=== PATIENT | female | born 1985 | race Two or more races ===

== ENCOUNTER 2018-05-27 06:02 | Day surgery (SDC) | payer BC ==
[2018-05-27] VITALS (15 sets, daily range): BP systolic 100–135; BP diastolic 57–80
[~2018-05-27] VITALS: Ht 167.6 cm; Wt 55.3 kg
[~2018-05-27 06:02] MED LIST: TAYTULLA PO; cefOXitin Sod 2 GM in D5W 55 ML IVPB ONE
[2018-05-27] MEDS ORDERED: Bacitracin Oint 15gm Tube TOPIC ONE (06:34)
[2018-05-27] MEDS ORDERED: Lidocaine 1% MPF 10mg/ml 5ml ONE (06:34)
[2018-05-27] MEDS ORDERED: Bupivacaine 0.5% Inj 30 ml vial INJ ONE (06:34)
[2018-05-27] MEDS ORDERED: Ropivacaine 5mg/ml Vial 30ml INJ ONE (07:09)
[2018-05-27] MEDS ORDERED: Zemuron 50mg/5ml Inj IV ONE (07:19)
[2018-05-27] MEDS ORDERED: Propofol 200mg/20ml IV ONE (07:19)
[2018-05-27] MEDS ORDERED: Succinylcholine 20mg/ml 10ml vial ONE (07:20)
--- NOTE | 2018-05-27 07:27 | Anethesia Preoperative Eval ---
Anesthesia Pre-op PMH/ROS General Date of Evaluation: May 27, 2018 Time of Evaluation: 07:20 Anesthesiologist: Malaika Marquez CRNA ASA Score: ASA 1 Mallampati Score Class I : Soft palate, uvula, fauces, pillars visible Class II: Soft palate, uvula, fauces visible Class III: Soft palate, base of uvula visible Class IV: Only hard plate visible Mallampati Classification: Class I Surgeon: Jami Diagnosis: Endometriosis Anesthesia History: none Social History: smoking Family History: no anesthesia problems Allergies: Coded Allergies: No Known Allergies (Unverified , 05/27/18) Medications: see eMAR Patient NPO?: Yes NPO Date: May 27, 2018 NPO Time: 00:00 Past Medical History Cardiovascular: Denies: HTN, CAD, TN, valve dz, arrhythmia, other Pulmonary: Denies: asthma, COPD, RODRI, other Gastrointestinal/Genitourinary: Reports: other - endometriosis; Denies: GERD, CRI, ESRD HEENT: Reports: other - past nasal fracture; Denies: cataract (L), cataract (R), glaucoma, [place] (L), [place] (R) Hematology/Immune: Denies: anemia, DVT, bleeding disorder, other Musculoskeletal/Integumentary: Denies: OA, RA, DJD, DDD, edema, other PMH Narrative: As above PSxH Narrative: nasal fracture repair Anesthesia Pre-op Phys. Exam Physician Exam Last Vital Signs Date Time Temp Pulse Resp B/P (MAP) Pulse Ox O2 Delivery O2 Flow Rate FiO2 05/27/18 07:03 98.6 61 18 113/80 100 Room Air 98.6 Constitutional: NAD Neurologic: CN 2-12 intact Cardiovascular: RRR Respiratory: CTA Gastrointestinal: S/NT/ND Airway Exam Mallampati Score: Class I MO: full Neck: no limitations TMD: > 3 FB ROM: full Teeth: intact Dentures: no upper, no lower Anesthesia Pre-op A/P Labs in chart, reviewed Urine Test Test 05/27/18 06:20 Urine HCG, Qualitative Negative (NEGATIVE) Risk Assessment & Plan Assessment: Heatlhy ASA I ok to proceed Plan: GETA Status Change Before Surgery: No Pre-Antibiotics Drug: Malaika Perez CRNA May 27, 2018 07:27
--- NOTE | 2018-05-27 07:49 | Pre-Procedure Note/Attestation ---
Pre-Procedure Note/Attestation Complete Prior to Procedure Planned Procedure: not applicable Procedure Narrative: CO2 laser pelviscopy, possible bilateral ovarian cystectomies, ablation of endometriosis, hysteroscopy dilation and curettage Indications for Procedure Pre-Operative Diagnosis: left sided hemorhagic cyst, persistent pain, dysmenorhea Attestation I attest that I discussed the nature of the procedure; its benefits; risks and complications; and alternatives (and the risks and benefits of such alternatives ), prior to the procedure, with the patient (or the patient's legal financial representative). I attest that, if there was a reasonable possibility of needing a blood transfusion, the patient (or the patient's legal financial representative) was given the [place] [employer] standardized written summary, pursuant to the Behzad Severo Blood Safety Act ([place] Health and Safety Code # 1645, as amended). I attest that I re-evaluated the patient just prior to the surgery and that there has been no change in the patient's H&P, except as documented below: Ada Farrell MD May 27, 2018 07:49
[2018-05-27] MEDS ORDERED: fentaNYL 100 mcg/2 mL IV ONE (08:00)
[2018-05-27] MEDS: ProvayBlue 5mg/ml 10ml amp INJ ONE ×2 (08:00→09:45)
[2018-05-27] MEDS ORDERED: Metoclopramide 10mg/2ml Inj ONE (08:00)
[2018-05-27] MEDS ORDERED: Glycopyrrolate 0.2mg/ml 1ml Vial ONE (08:00)
[2018-05-27] MEDS ORDERED: LR 1000ml ONE (08:00)
[2018-05-27] MEDS ORDERED: NS Irrig 1000ml ONE (08:00)
[2018-05-27] MEDS ORDERED: Dexamethasone 4mg/ml vial ONE (08:00)
[2018-05-27] MEDS ORDERED: Sterile Water Irrig 1000ml IRRIG ONE (08:00)
[2018-05-27] MEDS ORDERED: Midazolam 2mg/2ml Inj ONE (08:00)
[2018-05-27] MEDS ORDERED: Neostigmine 1mg/ml 10ml Inj ONE (09:19)
[2018-05-27] MEDS ORDERED: DiphenhydrAMINE 50mg/ml Inj IVP PRN ×2 (10:00→14:01)
--- NOTE | 2018-05-27 10:17 | Brief Operative Note ---
Immediate Post Operative Note Operative Note Pre-op Diagnosis: left sided hemorhagic cyst, persistent pain, dysmenorhea Procedure: CO@2 laser pelviscopy, dilation, hysterocopys, left ovarian cystectomy, ablation of endometriosis Post-op Diagnosis: same and endometriosis Surgeon: alpa Vocational Ed Instructor: yandel Anesthesia: general Specimen: yes Complications: none Condition: stable Fluids: crystalloid Estimated Blood Loss: minimal Drains: none Implant(s) used?: No Ada Farrell MD May 27, 2018 10:17
--- NOTE | 2018-05-27 10:20 | Immediate Post-Op Evaluation ---
Immediate Post-Op Evalulation Immediate Post-Op Evalulation Procedure: Laparsocopy LEFT ovarian cystectomy, hysteroscopy Date of Evaluation: May 27, 2018 Time of Evaluation: 10:12 IV Fluids: LR 1700 Ml Blood Products: 0 Estimated Blood Loss: 20 Urinary Output: 100 ml Blood Pressure Systolic: 111 Blood Pressure Diastolic: 73 Pulse Rate: 70 Respiratory Rate: 20 O2 Sat by Pulse Oximetry: 100 Temperature (Fahrenheit): 97.0 Pain Score (1-10): 0 Nausea: No Vomiting: No Complications none Patient Status: awake, reacts, patent, extubated Drug: Cefazolin 1000 mg Given Within 1 Hr of Incision: Yes Time Given: 08:50 Malaika Marquez CRNA May 27, 2018 10:20
[2018-05-27] MEDS ORDERED: Hydromorphone 0.5mg/0.5ml inj ONE (10:30)
[2018-05-27] MEDS: Hydromorphone 0.5mg/0.5ml inj IVP PRN ×2 (10:34→11:08)
--- NOTE | 2018-05-27 12:26 | 48 Hour Post Anesthesia Eval ---
Post Anesthesia Evaluation Procedure: Laparsocopy LEFT ovarian cystectomy, hysteroscopy Date of Evaluation: May 27, 2018 Time of Evaluation: 12:15 Blood Pressure Systolic: 101 0: 61 Pulse Rate: 61 Respiratory Rate: 22 Temperature (Fahrenheit): 98.4 O2 Sat by Pulse Oximetry: 97 Airway: patent Nausea: No Vomiting: No Pain Intensity: 2 Hydration Status: adequate Cardiopulmonary Status: stable Mental Status/LOC: patient returned to baseline Follow-up Care/Observations: per surgeon Post-Anesthesia Complications: none Follow-up care needed: ready to discharge Malaika Marquez CRNA May 27, 2018 12:26
--- NOTE | 2018-05-27 13:45 | History and Physical Report ---
DATE OF ADMISSION: 05/27/2018 PREOPERATIVE DIAGNOSES: 1. Left lower quadrant pain. 2. Left endometrioma. The patient has been followed by me from September 2016 and in October 2016, she complained of dyspareunia and she was subsequently diagnosed with dyspareunia and . In July 2017, she returned complaining of severe pain with her periods that prevented her from activities of daily living as well as dyspareunia and possible endometrioma versus a hemorrhagic cyst. She was placed on control pills. However, the left hemorrhagic ovarian cyst persisted. The patient was seen by me in March 2018 and she has thus continued control pills for six months at this point while she developed dysmenorrhea in October 2016. She continued to have persistent lower abdominal pain, especially acute in left lower quadrant and the cyst on ultrasound was still hemorrhagic consistent with endometrioma. PAST MEDICAL HISTORY: None. PAST SURGICAL HISTORY: None. ALLERGIES: None. SOCIAL HISTORY: The patient drinks socially approximately eight drinks a week and she lives by herself. REVIEW OF SYSTEMS: Contributory currently for left lower quadrant pain and lower abdominal pain. She previously had dysmenorrhea and dyspareunia. Currently, she is not sexually active and does not have her periods, so she is not complaining of the latter too. PHYSICAL EXAMINATION: VITAL SIGNS: The patient is 66 inches, 123 pounds, blood pressure 100/60 , and temperature 97.8 degrees. HEAD AND NECK: Pupils equal and reactive to light. LUNGS: Clear to auscultation bilaterally. CARDIAC: Regular rate and rhythm. ABDOMEN: Soft, nondistended, and nontender. EXTREMITIES: No cords. No cyanosis. No edema. BIMANUAL EXAM: The patient has approximately a 6-week uterus with a 2 cm fundal fibroid. Left ovary is tender to palpation and approximately 5 cm in diameter to the uterus. ASSESSMENT: A 32-year-old with left lower quadrant pain, previously dysmenorrhea and dyspareunia. The patient has been on control pills for six months with partial relief in symptoms. Probable endometriosis. PLAN: Plan is for diagnostic laparoscopy, left ovarian cystectomy, and ablation of endometriosis. Gwendolyn Petty M.D. DR: CHRISTOPHER JOB#: [id number] CC: PORTER
[2018-05-27] MEDS ORDERED: Metoclopramide 10mg/2ml Inj IVP PRN (14:01)
[2018-05-27] MEDS ORDERED: D5 1/2NS 1,000 ML IV SCH (14:01)
[2018-05-27] MEDS ORDERED: Norco 5mg/325mg tab ORAL PRN (14:01)
[2018-05-27] MEDS ORDERED: HYDROmorphone 1mg/ml Carpuject SUBQ PRN (14:01)
[2018-05-27] MEDS ORDERED: Tylenol #3 tab (300mg/30mg) ORAL PRN (14:01)
--- NOTE | 2018-05-30 08:30 | Operative Note - Dictated ---
NOTE: "POOR AUDIO QUALITY" PREOPERATIVE DIAGNOSES: Left lower quadrant pain, left ovarian mass persistent despite 6 months of control pills. POSTOPERATIVE DIAGNOSES: Left lower quadrant pain, left ovarian mass, persistent despite 6 months of control pills, endometriosis. PROCEDURE: CO2 laser pelviscopy, left ovarian cystectomy, ablation of endometriosis, lysis of adhesions, hysteroscopy, chromopertubation. SURGEON: Ada Farrell M.D. DEBURRING AND TOOLING MACHINE OPERATOR: Ivonne Gtz M.D. ANESTHESIOLOGIST: BEATA Marquez. ANESTHESIA: General endotracheal. COMPLICATIONS: None. FINDINGS: Endometriosis with bilateral ovaries adherent to the posterior ovarian fossa. Filmy adhesions between the uterus and posterior cul-de-sac. Implants of endometriosis on right bladder as well as uterosacral ligament bilaterally. DESCRIPTION OF PROCEDURE: After ensuring informed consent, the patient was taken to the operating room where general anesthesia was induced. The patient was sterilely prepped and draped. A speculum was placed in the vagina. Cervix was easily dilated to an #8 Hegar dilator. Hysteroscope was placed inside the uterine cavity. Uterine cavity appeared to be within normal limits. Uteroscope was withdrawn and HUMI-type manipulator was placed inside the uterine cavity with the balloon inflated to 10 mL. Next, attention was turned to the abdomen where a small incision was made inside the umbilicus. Veress needle was placed inside the abdominal cavity. Intraperitoneal placement was confirmed with low opening pressures. Then mm trocar was placed inside the peritoneal cavity with intraperitoneal placement confirmed with the camera. Next, a suprapubic 5 mm trocar was placed under direct visualization and pelvis was explored. There was an obvious left ovarian mass of about 2.5 cm in diameter. There were adhesions between the uterus and posterior cul-de-sac. There were multiple implants of endometriosis. Upper abdomen appeared to be within normal limits. Rectosigmoid was filled with stool. Bowel was pushed back. Next, a left lateral trocar was placed under direct visualization. Next, using CO2 laser, filmy adhesions were lysed. Next, attention was turned to the left ovary. Left ovary was grasped and capsule was dissected off using CO2 laser and this capsule was grasped and the cyst was bluntly and sharply dissected off of the underlying ovary and completely removed using unipolar and bipolar cautery. Excellent hemostasis was assured. Next, attention was turned to the right ovary, which was densely adherent to the posterior uterus and ovarian fossa. Using blunt dissection, the ovary was mobilized until it was completely free. The bilateral tubes appeared to be within normal limits. Next, the endometriotic implants on the bladder were ablated using CO2 laser. Next, peritoneal adhesions were removed and sent for biopsy to pathology. Next, excellent hemostasis was assured. Pelvis was copiously irrigated and chromopertubation was performed with dilute solution of methylene blue. Left tube was easily proven to be patent, however, the right tube was looking normal, did not spill despite manipulation of the balloon and placement of the HUMI-type manipulator. Pelvis was irrigated. The irrigant was suctioned off. All pneumoperitoneum was collapsed and all trocars were removed from the abdomen under direct visualization. The infraumbilical trocar site was closed with #0 Vicryl and Steri-Strips. The 5 mm sites were closed with 4-0 Monocryl and Steri-Strips. HUMI and Ramirez were removed and the patient was taken to the recovery room area, extubated and in stable condition. All instrument and lap counts correct x2. Ada Farrell M.D. DR: Yanet JOB#: [id number] CC:
--- NOTE | 2018-06-01 01:45 | Pre-op HX & Phy Repo 2 SIG ---
DATE OF ADMISSION: 05/27/2018 HISTORY OF PRESENT ILLNESS: This is a young female who presented to our office in 2017 with a chief complaint of persistent cramps, so severe that necessitated being on nonsteroidal anti-inflammatory medicine for several days. Soon the problem got worse. She started experiencing pain in between periods and also dysmenorrhea, and dyspareunia became very prominent. She was placed on control pills; however, no improvement. She also was diagnosed with the ovarian cyst and this resolved after being on control pills. Her condition was discussed in detail, possible complications of this condition, and decision was to perform laparoscopy due to possible endometriosis. All possible side effects of the surgery were discussed and explained in detail. PAST MEDICAL HISTORY: Negative. PAST SURGICAL HISTORY: Negative. ALLERGIES: None. SOCIAL HISTORY: The patient drinks socially, approximately 8 drinks a week, and she lives by herself. REVIEW OF SYSTEMS: Noncontributory besides complaints mentioned above. PHYSICAL EXAMINATION: GENERAL: Well-developed, well-nourished white female. The patient's height is 66 inches, weight is 123 pounds, and blood pressure 100/60. HEENT: Head, normocephalic and atraumatic. Eyes, pupils equal to light and accommodation. LUNGS: Clear to auscultation bilaterally. HEART: Regular rate and rhythm. No murmur. No rub. ABDOMEN: Soft and nontender with good bowel sounds. EXTREMITIES: No cyanosis. No edema. PELVIC: Exam revealed vulva and vagina, no lesions. Cervix closed. Uterus is 6 weeks size with . Left ovary is tender on palpation, approximately 5 cm in size. ASSESSMENT: This is a 32-year-old young lady with left lower quadrant pain previously, dysmenorrhea, and dyspareunia. The patient has been on control pills for 6 months with no relief. PLAN: Diagnostic laparoscopy, left ovarian cystectomy, and ablation of endometriosis. Gwendolyn Petty M.D. DR: EDU JOB#: [id number] CC:
== END 2018-05-27 14:10 | disposition home or self-care (01) ==
LOC: SUR 06:02
DX: N80.3 Endometriosis of pelvic peritoneum (principal); N80.1 Endometriosis of ovary; K66.0 Peritoneal adhesions (postprocedural) (postinfection); F17.200 Nicotine dependence, unspecified, uncomplicated
CPT/HCPCS: 58555; 58662; 81025; J0330; J0690; J1100; J1170; J2250; J2405; J2704; J2710; J2765; J2795; J3010; Q9968; 94003; 94150